=== PATIENT | female | born 1960 | race African-American/Black ===

== ENCOUNTER → 2017-03-23 | Outpatient (CLI) | payer OTHER ==
--- NOTE | 2017-03-23 11:00 | KCIC ---
RS Compliance Statement: One or more of the following individualized dose reduction techniques were utilized for this examination: 1. Automated exposure control 2. Adjustment of the mA and/or kV according to patient size 3. Use of iterative reconstruction technique EXAMINATION: CT of the paranasal sinuses without contrast 03/23/2017 10:00 AM HISTORY: Recurrent sinusitis TECHNIQUE: CT of the paranasal sinuses was performed using sinus protocol without contrast COMPARISON: CT sinus March 05, 2015 FINDINGS: Review of the topogram demonstrates no abnormalities. The frontal sinuses are normal. The ethmoid sinuses are normal. The maxillary sinuses are normal. The sphenoid sinuses are normal. There is an [place] air cell involving the left sphenoid sinus. The ostiomeatal units are open bilaterally. Nasal septum is minimally deviated to the right. No areas of bony erosion are identified. The orbits are normal. Limited view of the frontal lobes is normal. IMPRESSION: Paranasal sinuses are well aerated. Ostiomeatal units are patent bilaterally. Electronically signed by: Maricruz Shore MD (03/23/2017 10:57 AM) [place] [id number]
== END | disposition home or self-care (01) ==
LOC: KCIC CT 08:48
PROVIDERS: ATTEND Otolaryngology Plastic Surgery within the Head & Neck
DX: J32.9 Chronic sinusitis, unspecified (principal); J34.3 Hypertrophy of nasal turbinates; J34.89 Other specified disorders of nose and nasal sinuses; J30.9 Allergic rhinitis, unspecified; G47.9 Sleep disorder, unspecified; I10 Essential (primary) hypertension
CPT/HCPCS: 70486